=== PATIENT | male | born 1955 | race Caucasian/White ===

== ENCOUNTER 2022-03-17 13:03 | Outpatient (CLI) | payer MEDICARE, SELFPAY ==
[2022-03-17 17:28] LABS: Uric Acid* 5.5 mg/dL (2.2-8.4)
== END 2022-03-17 13:04 | disposition home or self-care (01) ==
PROVIDERS: PCP Family Medicine; Visit Provider Nurse Practitioner Family
DX: M79.675 Pain in left toe(s) (principal); Z79.01 Long term (current) use of anticoagulants
CPT/HCPCS: 84550

== ENCOUNTER 2022-03-29 08:42 | Outpatient (CLI) | payer MEDICARE, SELFPAY ==
[2022-03-29 13:42] LABS: Chloride* 109 mmol/L (96-114); Sodium* 144 mmol/L (135-149)
[2022-03-29 13:43] LABS: Potassium* 4.5 mmol/L (3.6-5.1)
[2022-03-29 13:45] LABS: Blood Urea Nitrogen* 17 mg/dL (7-30); Carbon Dioxide* 27 mmol/L (20-32); Cholesterol* 150 mg/dL (90-199); Creatinine* 1.1 mg/dL (0.5-1.5); Estimated Glomerular Filt Rate 74 ml/min
[2022-03-29 13:46] LABS: Glucose* 106 mg/dL (60-115); HDL Cholesterol* 25 mg/dL (>=40); LDL Cholesterol Calculated 78 mg/dL (<100); Triglycerides* 233 mg/dL (40-149)
== END 2022-03-29 08:43 | disposition home or self-care (01) ==
PROVIDERS: PCP Family Medicine; Visit Provider Family Medicine
DX: Z00.00 Encounter for general adult medical examination without abnormal findings (principal); E78.5 Hyperlipidemia, unspecified; I10 Essential (primary) hypertension; Z13.0 Encounter for screening for diseases of the blood and blood-forming organs and certain disorders involving the immune mechanism
CPT/HCPCS: 80048; 80061

== ENCOUNTER 2023-06-27 08:19 | Outpatient (CLI) | payer MEDICARE, SELFPAY | END 2023-06-27 08:20 | disposition home or self-care (01) | PROVIDERS: PCP Family Medicine; Visit Provider Family Medicine | DX: Z00.00 Encounter for general adult medical examination without abnormal findings (principal); I10 Essential (primary) hypertension; E78.5 Hyperlipidemia, unspecified; Z79.01 Long term (current) use of anticoagulants; Z83.3 Family history of diabetes mellitus; Z13.0 Encounter for screening for diseases of the blood and blood-forming organs and certain disorders involving the immune mechanism; Z12.5 Encounter for screening for malignant neoplasm of prostate | CPT/HCPCS: 80048; 80061; 85610; G0103 ==

== ENCOUNTER 2023-12-04 14:04 | Outpatient (CLI) | payer MEDICARE, SELFPAY | END 2023-12-04 14:05 | disposition home or self-care (01) | LOC: NFLDREF 12-19 12:02 | PROVIDERS: PCP Family Medicine; Referring Provider Family Medicine; Visit Provider Family Medicine | DX: Z86.711 Personal history of pulmonary embolism (principal); Z79.01 Long term (current) use of anticoagulants | CPT/HCPCS: 85610 ==

== ENCOUNTER 2024-04-05 13:09 | Outpatient (CLI) | payer MEDICARE, SELFPAY | END 2024-04-05 13:10 | disposition home or self-care (01) | LOC: NFLDREF 04-06 19:19 | PROVIDERS: PCP Family Medicine; Referring Provider Family Medicine; Visit Provider Family Medicine | DX: Z86.711 Personal history of pulmonary embolism (principal); Z79.01 Long term (current) use of anticoagulants | CPT/HCPCS: 85610 ==

== ENCOUNTER 2024-09-20 19:39 | Outpatient (CLI) | payer MEDICARE, SELFPAY | END 2024-09-20 19:40 | disposition home or self-care (01) | PROVIDERS: PCP Family Medicine; Visit Provider Family Medicine | DX: R07.9 Chest pain, unspecified (principal); R61 Generalized hyperhidrosis | CPT/HCPCS: A0425; A0427 ==

== ENCOUNTER 2024-10-02 09:53 | Outpatient (CLI) | payer MEDICARE, SELFPAY | END 2024-10-02 09:54 | disposition home or self-care (01) | PROVIDERS: PCP Family Medicine; Visit Provider Family Medicine | DX: I10 Essential (primary) hypertension (principal) | CPT/HCPCS: 80048 ==

== ENCOUNTER 2024-10-25 11:53 | Outpatient (CLI) | payer MEDICARE, SELFPAY | END 2024-10-25 11:54 | disposition home or self-care (01) | LOC: NFLDREF 20:51 | PROVIDERS: PCP Family Medicine; Referring Provider Family Medicine; Visit Provider Family Medicine | DX: Z79.01 Long term (current) use of anticoagulants (principal); Z86.711 Personal history of pulmonary embolism | CPT/HCPCS: 85610 ==

== ENCOUNTER 2024-11-06 11:39 | Outpatient (CLI) | payer MEDICARE, SELFPAY | END 2024-11-06 11:40 | disposition home or self-care (01) | LOC: NFLDREF 11-13 00:20 | PROVIDERS: PCP Family Medicine; Referring Provider Family Medicine; Visit Provider Family Medicine | DX: Z79.01 Long term (current) use of anticoagulants (principal); Z86.711 Personal history of pulmonary embolism | CPT/HCPCS: 85610 ==

== ENCOUNTER 2024-11-29 11:30 | Outpatient (CLI) | payer MEDICARE, SELFPAY | END 2024-11-29 11:31 | disposition home or self-care (01) | LOC: NFLDREF 11-30 10:10 | PROVIDERS: PCP Family Medicine; Referring Provider Family Medicine; Visit Provider Family Medicine | DX: Z79.01 Long term (current) use of anticoagulants (principal); Z86.711 Personal history of pulmonary embolism | CPT/HCPCS: 85610 ==

== ENCOUNTER 2025-01-24 11:35 | Outpatient (CLI) | payer MEDICARE, SELFPAY | END 2025-01-24 11:36 | disposition home or self-care (01) | LOC: NFLDREF 01-29 11:43 | PROVIDERS: PCP Family Medicine; Referring Provider Family Medicine; Visit Provider Family Medicine | DX: Z79.01 Long term (current) use of anticoagulants (principal); Z86.711 Personal history of pulmonary embolism | CPT/HCPCS: 85610 ==

== ENCOUNTER 2025-05-02 15:04 | Outpatient (CLI) | payer MEDICARE, SELFPAY | END 2025-05-02 15:05 | disposition home or self-care (01) | PROVIDERS: PCP Family Medicine; Visit Provider Family Medicine | DX: E78.2 Mixed hyperlipidemia (principal); Z12.5 Encounter for screening for malignant neoplasm of prostate | CPT/HCPCS: 80061; G0103 ==

== ENCOUNTER 2025-06-12 11:36 | Outpatient (CLI) | payer MEDICARE, SELFPAY | END 2025-06-12 11:37 | disposition home or self-care (01) | LOC: NFLDREF 06-16 15:01 | PROVIDERS: PCP Family Medicine; Referring Provider Family Medicine; Visit Provider Family Medicine | DX: Z79.01 Long term (current) use of anticoagulants (principal) | CPT/HCPCS: 85610 ==